=== PATIENT | female | born 1990 | race Two or more races ===

== ENCOUNTER 2025-03-03 08:55 | Emergency (ER) | payer MEDICAID, OTHER ==
[~2025-03-03] VITALS: Ht 165.1 cm; Wt 82.0 kg
--- NOTE | 2025-03-03 09:51 | ED.PDOC ---
Back pain HPI HPI Comments 34-year-old female BIBA and a chief complaint of back pain. Patient reports that she currently has lower back pain that radiates down her legs bilaterally. Patient has a history of sciatic nerve pain for which she controls with muscle relaxers and Motrin but recently ran out of her muscle relaxers. Patient states on her PCP being Dr. Thomas and she has seen him one month ago for back pain. Patient notes that she recently moved into the [facility] is a and has no local PCP. Denies chills, fever, N/V/D, SOB, CP. No other associated symptoms, modifiers, recent injuries or sick contacts present at this time. Chief Complaint: Back Pain Time Seen by MD: 09:45 Reviewed Notes: Nurses Notes, Medications, Allergies Information Source: Patient Mode of Arrival: EMS Timing: Came on: Suddenly Duration: Since onset Location of Back pain: (B) Lower back, (B) Lumbar Severity: Moderate Prehospital treatment: None Quality: Aching Onset: Spontaneous History of: Chronic Back Pain Associated signs and symptoms: None Past Medical History Past Medical History (Other): Sciatica nerve pain Surgical History: Denies all surgeries PROGRAM THERAPIST History: No Pertinent PROGRAM THERAPIST History Family History Family History: Reviewed,noncontributory to illness, Unknown Social History Smoker: Non-Smoker Alcohol: Denies ETOH Use Drugs: Denies Drug Use Lives In: Home Constitutional: denies: chills, diaphoresis, fatigue, fever, malaise, sweats, weakness, others EENTM: denies: blurred vision, double vision, ear bleeding, ear discharge, ear drainage, ear pain, ear ringing, eye pain, eye redness, hearing loss, mouth pain, mouth swelling, nasal discharge, nose bleeding, nose congestion, nose pain, photophobia, tearing, throat pain, throat swelling, voice changes, others Respiratory: denies: cough, hemoptysis, orthopnea, SOB at rest, shortness of breath, SOB with excertion, stridor, wheezing, others Cardiovascular: denies: chest pain, dizzy spells, diaphoresis, Dyspnea on exertion, edema, irregular heart beat, left arm pain, lightheadedness, palp itations, PND, syncope, others Gastrointestinal: denies: abdomen distended, abdominal pain, blood streaked bowels, constipated, diarrhea, dysphagia, difficulty swallowing, hematemesis, melena, nausea, poor appetite, poor fluid intake, rectal bleeding, rectal pain, vomiting, others Genitourinary: denies: abnormal vagina bleeding, burning, dyspareunia, dysuria, flank pain, frequency, hematuria, incontinence, pain, , vagina discharge, urgency, others Neurological: denies: dizziness, fainting, headache, left sided numbness, left sided weakness, numbness, paresthesia, pre-existing deficit, right sided numbness, right sided weakness, seizure, speech problems, tingling, tremors, weakness, others Musculoskeletal: reports: back pain; denies: gout, joint pain, joint swelling, muscle pain, muscle stiffness, neck pain, others Integumetry: denies: bruises, change in color, change in hair/nails, dryness, laceration, lesions, lumps, rash, wounds, others Allergic/Immunocompromised: denies: Difficulty Healing, Frequent Infections, Hives, Itching, others Hematologic/Lymphatic: denies: anemia, blood clots, easy bleeding, easy bruising, swollen glands, others Endocrine: denies: excessive hunger, excessive sweating, excessive thirst, excessive urination, flushing, intolerance to cold, intolerance to heat, unexplained weight gain, unexplained weight loss, others Psychiatric: denies: anxiety, bipolar disorder, depression, hopeless, panic disorder, schizophrenia, sleepless, suicidal, others All Other Systems: Reviewed and Negative Physical Exam General Appearance: Moderate Distress, Normal HEENT: Normal ENT Inspection, PERRL/EOMI, Pharynx Normal, TMs Normal Neck: Full Range of Motion, Non-Tender, Normal, Normal Inspection Respiratory: Chest Non-Tender, Lungs Clear, No Accessory Muscle Use, No Respiratory Distress, Normal Breath Sounds Cardiovascular: No Edema, No JVD, No Murmur, No Gallop, Normal Peripheral Pulses, Regular Rate/Rhythm Breast Exam: Deferred Gastrointestinal: No Organomegaly, Non Tender, No Pulsatile Mass, Normal Bowel Sounds, Soft Genitalia: Deferred Pelvic: Deferred Rectal: Deferred Extremities: No calf tenderness, Normal capillary refill, Normal inspection, Normal range of motion, Non-tender, No pedal edema Musculoskeletal : Location: Bilateral Extremity Location: Back, Leg Apperance: Normal, Limited ROM, Tenderness: Moderate, Tenderness: Severe Neurologic: Alert, strategy lead II-XII nml as Tested, No Motor Deficits, Normal Affect, Normal Mood, No Sensory Deficits, Other (Radiculopathy to both legs) Cerebellar Function: Other (Unable to walk at this time because of severe pain) Reflexes: Normal, NOT DONE Skin: Dry, Normal Color, Warm Peripheral Pulses: 1+ carotid (R), 1+ carotid (L) Lymphatic: No Adenopathy Was a procedure done? Was a procedure done?: No Back Pain Differential Dx Differential Diagnosis: DJD, Musculoskeletal Pain X-Ray, Labs, Meds, VS Vital Signs Date Time Temp Pulse Resp B/P (MAP) Pulse Ox O2 Delivery O2 Flow Rate FiO2 03/03/25 11:03 84 18 122/76 03/03/25 09:12 98.3 97 18 117/45 96 98.3 Current Medications Medications (Trade) Dose Ordered Sig/Kem Route Start Time Stop Time Status Last Admin Ketorolac Tromethamine (Toradol Injection) 60 mg ONCE ONCE IM 03/03/25 09:45 03/03/25 09:47 DC 03/03/25 10:02 Metoclopramide HCl (Reglan Injection) 10 mg ONCE ONCE IM 03/03/25 09:45 03/03/25 09:47 DC 03/03/25 10:01 Gabapentin (Neurontin Capsule) 300 mg ONCE ONCE PO 03/03/25 10:15 03/03/25 10:16 DC 03/03/25 10:15 Nalbuphine HCl (Nubain) 5 mg ONCE ONCE IM 03/03/25 10:45 03/03/25 10:47 DC 03/03/25 11:03 X-Ray, Labs, Meds, VS Comment Patient presented to the [facility] because of severe back pain for the past few days mostly radiating to both legs patient does have history of severe back pain with a radiculopathy from an accident Lumbar spine CT refused to have a CT some because the leg is still hurting and she can not lay down but the other reason because she had already MRIs and CT scans this year Patient will be discharged home to follow up with the open orthopedist or her MD meanwhile we will give her some medication to help her Time of 1ST Reevaluation: 10:15 Reevaluation 1ST: Unchanged Patient Education/Counseling: Diagnosis, Treatment, Prognosis Family Education/Counseling: No Family Present SEPSIS Sepsis Screen Date sepsis recognized/suspect: Mar 03, 2025 Time Sepsis recognized/suspect: 09 Recent Procedure: No On Antibiotic Therapy: No Respiratory Rate >20: No Heart Rate >90: No Temp<36 C (96.8 F) or >38.3 C: No SBP <90 or MAP <65 mmHG: No New Acute Mental Status Change: No Is the patient on CPAP, BIPAP,: No Physician Orders Ls Spine Wo Contrast (03/03/25 09:50) Vital Signs Date Time Temp Pulse Resp B/P (MAP) Pulse Ox O2 Delivery O2 Flow Rate FiO2 03/03/25 11:03 84 18 122/76 03/03/25 09:12 98.3 97 18 117/45 96 98.3 Medications Medications Dose Ordered Sig/Kem Route Start Time Stop Time Status Last Admin Dose Admin Gabapentin 300 mg ONCE ONCE PO 03/03/25 10:15 03/03/25 10:16 DC 03/03/25 10:15 Ketorolac Tromethamine 60 mg ONCE ONCE IM 03/03/25 09:45 03/03/25 09:47 DC 03/03/25 10:02 Metoclopramide HCl 10 mg ONCE ONCE IM 03/03/25 09:45 03/03/25 09:47 DC 03/03/25 10:01 Nalbuphine HCl 5 mg ONCE ONCE IM 03/03/25 10:45 03/03/25 10:47 DC 03/03/25 11:03 Departure 1 Departure Time of Disposition: 12:00 Impression: Primary Impression: Lumbar radiculopathy Additional Impression: Musculoskeletal pain Disposition: HOME / SELF CARE / HOMELESS Condition: Fair Additional Instructions: Local Heat you can use hot shower e-Prescriptions Hydrocodone-Acetaminophen (Hydrocodone Bitartrate/AC 5-325 mg) 1 Tab Tab 1 TAB PO BID for 10 Days, #20 TAB Prov: STEVEN CASTRO MD 03/03/25 Cyclobenzaprine Hcl (Cyclobenzaprine Hcl) 5 Mg Tab 10 MG PO TID for 10 Days, #30 TAB Prov: STEVEN CASTRO MD 03/03/25 Dexamethasone (Decadron) 4 Mg Tb 1 TAB PO BID for 5 Days, #10 TAB Prov: STEVEN CASTRO MD 03/03/25 Discharged With: Self Critical Care Note Critical Care Time?: No Stability Stability form required: No Heart Score Heart Score: Heart Score Response (Comments) Value History N/A 0 EKG N/A 0 Age <45 0 Risk Factors No known risk factors 0 Troponin N/A 0 Total 0 I personally scribed for STEVEN CASTRO MD ([email or web address]) on 03/03/25 at 09:51. Electronically submitted by Riky Porter ([email or web address]). STEVEN CASTRO MD Mar 03, 2025 09:51
[2025-03-03] MEDS: METOCLOPRAMIDE HCL 5MG/ml INJ 2ml VIAL IM ONE (10:01)
[2025-03-03] MEDS: KETOROLAC TROMETH 60MG/2ML VIAL IM ONE (10:02)
[2025-03-03] MEDS: GABAPENTIN 300 MG CAP PO ONE (10:15)
[2025-03-03] MEDS ORDERED: MORPHINE SULFATE 4 MG/ML SYR/VIAL IM ONE (10:30)
[2025-03-03] MEDS: NALBUPHINE HCL 10 MG/1ml INJECTION IM ONE (11:03)
[2025-03-03 12:06] VITALS: BP 125/84; PULSE 74; RESP 20; TEMP 98; O2SAT 99
[2025-03-03] MEDS ORDERED: CYCL-837 PO (12:06)
[2025-03-03] MEDS ORDERED: HYDR-4902 PO ×2 (12:06→14:24)
[2025-03-03] MEDS ORDERED: DEX4T PO (12:06)
== END 2025-03-03 12:41 | disposition home or self-care (01) ==
LOC: EDBD 08:55 → ER 08:55
DX: M54.16 Radiculopathy, lumbar region (principal); G89.29 Other chronic pain
CPT/HCPCS: 96372; 99284; J1885; J2300; J2765